=== PATIENT | male | born 1980 | race Caucasian/White ===

== ENCOUNTER 2017-07-07 20:45 | Emergency (ER) | payer SELFPAY ==
[~2017-07-07] VITALS: Ht 188 cm; Wt 83.9 kg
[2017-07-07] MEDS ORDERED: NS IV 1000 ML 1,000 ML IV SCH (21:00)
[2017-07-07] MEDS ORDERED: LORazepam INJ 2 MG/ML (ATIVAN) VIAL IVP ONE ×3 (21:00→23:00)
--- NOTE | 2017-07-07 21:05 | ED Psychosocial ---
General Stated Complaint: ANXIETY Source: patient Exam Limitations: no limitations History of Present Illness Date Seen by Provider: Jul 07, 2017 Time Seen by Provider: 21:04 Initial Comments To ER per EMS from home with reports of anxiety and not feeling well. He is from [place] and has been here in [place] for about 3 weeks. Normally he drinks a couple of fifths of vodka daily but today has only had a pint. He feels very anxious Timing/Duration: constant Severity: moderate Associated Symptoms: anxiety Allergies and Home Medications Allergies Coded Allergies: No Known Drug Allergies (Unverified , 07/07/17) Constitutional: see HPI EENTM: see HPI Respiratory: no symptoms reported Cardiovascular: no symptoms reported Genitourinary: no symptoms reported Musculoskeletal: no symptoms reported Skin: no symptoms reported Psychiatric/Neurological: See HPI, Anxiety Physical Exam Vital Signs Vital Signs - First Documented 07/07/17 20:45 Temp 98.0 Pulse 113 Resp 20 B/P (MAP) 155/84 (107) Pulse Ox 99 O2 Delivery Nasal Cannula Capillary Refill : General Appearance: WD/WN, no apparent distress, other (tachycardic at 110) HEENT: PERRL/EOMI, normal ENT inspection Respiratory: normal breath sounds, no respiratory distress, no accessory muscle use Cardiovascular: regular rate, rhythm, no murmur Gastrointestinal: normal bowel sounds, non tender, soft Neurologic/Psychiatric: alert, normal mood/affect, oriented x 3, other (tearful ) Appearance/Memory: appropriate appearance, appropriate insight, neat Behavior/Eye Contact: cooperative, good eye contact Thoughts/Hallucinations: flight of ideas Skin: normal color, warm/dry Progress/Results/Core Measures Results/Orders Lab Results Laboratory Tests Test 07/07/17 20:54 07/07/17 22:07 Range/Units White Blood Count 4.9 4.3-11.0 10^3/uL Red Blood Count 4.61 4.35-5.85 10^6/uL Hemoglobin 14.7 13.3-17.7 G/DL Hematocrit 42 40-54 % Mean Corpuscular Volume 91 80-99 FL Mean Corpuscular Hemoglobin 32 25-34 PG Mean Corpuscular Hemoglobin Concent 35 32-36 G/DL Red Cell Distribution Width 12.7 10.0-14.5 % Platelet Count 231 130-400 10^3/uL Mean Platelet Volume 9.3 7.4-10.4 FL Neutrophils (%) (Auto) 60 42-75 % Lymphocytes (%) (Auto) 25 12-44 % Monocytes (%) (Auto) 13 H 0-12 % Eosinophils (%) (Auto) 0 0-10 % Basophils (%) (Auto) 2 0-10 % Neutrophils # (Auto) 2.9 1.8-7.8 X 10^3 Lymphocytes # (Auto) 1.2 1.0-4.0 X 10^3 Monocytes # (Auto) 0.6 0.0-1.0 X 10^3 Eosinophils # (Auto) 0.0 0.0-0.3 10^3/uL Basophils # (Auto) 0.1 0.0-0.1 10^3/uL Sodium Level 138 135-145 MMOL/L Potassium Level 4.3 3.6-5.0 MMOL/L Chloride Level 103 98-107 MMOL/L Carbon Dioxide Level 17 L 21-32 MMOL/L Anion Gap 18 H 5-14 MMOL/L Blood Urea Nitrogen 12 7-18 MG/DL Creatinine 0.84 0.60-1.30 MG/DL Estimat Glomerular Filtration Rate > 60 BUN/Creatinine Ratio 14 Glucose Level 105 70-105 MG/DL Calcium Level 9.3 8.5-10.1 MG/DL Total Bilirubin 0.7 0.1-1.0 MG/DL Aspartate Amino Transf (AST/SGOT) 89 H 5-34 U/L Alanine Aminotransferase (ALT/SGPT) 47 0-55 U/L Alkaline Phosphatase 86 40-136 U/L Total Protein 8.4 H 6.4-8.2 GM/DL Albumin 4.4 3.2-4.5 GM/DL Lipase 54 8-78 U/L Salicylates Level < 5.0 L 5.0-20.0 MG/DL Acetaminophen Level < 10 L 10-30 UG/ML Serum Alcohol 80 H <10 MG/DL Urine Color YELLOW Urine Clarity CLEAR Urine pH 6 5-9 Urine Specific [place] 1.025 H 1.016-1.022 Urine Protein 3+ H NEGATIVE Urine Glucose (UA) NEGATIVE NEGATIVE Urine Ketones 2+ H NEGATIVE Urine Nitrite NEGATIVE NEGATIVE Urine Bilirubin NEGATIVE NEGATIVE Urine Urobilinogen 1 NORMAL MG/DL Urine Leukocyte Esterase 1+ H NEGATIVE Urine RBC (Auto) 1+ H NEGATIVE Urine RBC RARE /HPF Urine WBC 2-5 /HPF Urine Crystals NONE /LPF Urine Bacteria NEGATIVE /HPF Urine Casts NONE /LPF Urine Mucus LARGE H /LPF Urine Culture Indicated NO Urine Opiates Screen NEGATIVE NEGATIVE Urine Oxycodone Screen NEGATIVE NEGATIVE Urine Methadone Screen NEGATIVE NEGATIVE Urine Propoxyphene Screen NEGATIVE NEGATIVE Urine Barbiturates Screen NEGATIVE NEGATIVE Ur Tricyclic Antidepressants Screen NEGATIVE NEGATIVE Urine Phencyclidine Screen NEGATIVE NEGATIVE Urine Amphetamines Screen POSITIVE H NEGATIVE Urine Methamphetamines Screen POSITIVE H NEGATIVE Urine Benzodiazepines Screen NEGATIVE NEGATIVE Urine Cocaine Screen NEGATIVE NEGATIVE Urine Cannabinoids Screen NEGATIVE NEGATIVE My Orders Orders - ZACH STOLL APRN Cbc With Automated Diff (07/07/17 20:51) Comprehensive Metabolic Panel (07/07/17 20:51) Lipase (07/07/17 20:51) Ua Culture If Indicated (07/07/17 20:51) Drug Screen Stat (Urine) (07/07/17 20:51) Ekg Tracing (07/07/17 20:51) Salicylate (07/07/17 20:51) Acetaminophen (07/07/17 20:51) Alcohol (07/07/17 20:51) Chest 1 View, Ap/Pa Only (07/07/17 20:51) Lorazepam Injection (Ativan Injection) (07/07/17 21:00) Ns Iv 1000 Ml (Sodium Chloride 0.9%) (07/07/17 21:00) Lorazepam Injection (Ativan Injection) (07/07/17 22:15) Rx-Diazepam Tablet (Rx-Valium Tablet) (07/07/17 22:46) Lorazepam Injection (Ativan Injection) (07/07/17 23:00) Medications Given in ED Current Medications Medications Dose Ordered Sig/Catalino Route Start Time Stop Time Status Last Admin Dose Admin Lorazepam 2 mg ONCE ONCE IVP 07/07/17 21:00 07/07/17 21:01 DC 07/07/17 21:00 2 MG Lorazepam 2 mg ONCE ONCE IVP 07/07/17 22:15 07/07/17 22:16 DC 07/07/17 22:25 2 MG Vital Signs/I&O Vital Sign - Last 12Hours 07/07/17 20:45 Temp 98.0 Pulse 113 Resp 20 B/P (MAP) 155/84 (107) Pulse Ox 99 O2 Delivery Nasal Cannula Departure Communication (Admissions) Progress Notes 2247-after 4 mg of IV Ativan he is feeling better though still anxious. Heart rate 115 sinus, blood pressure 132/79. I offered him admission versus discharge to home to continue drinking tomorrow when he can purchase more alcohol. He states he really just wanted to be checked out and he would like to do detox in the outpatient setting. He does not want to be admitted because he is moving this weekend and has several plans. We will better control his anxiety and symptoms in the emergency room, discharge with a pack of Valium to get him through the night until he can buy alcohol tomorrow. He states he has no alcohol in his home tonight which is why he is here. His girlfriend is at the bedside and agrees to care for him overnight and return to ER for any worsening symptoms. She is agreeable with this plan as well. This is not delirium tremens , he is alert and oriented to person place time and situation, just anxious. Vitals are stable. Impression Impression: Primary Impression: Anxiety Additional Impressions: Alcohol withdrawal Methamphetamine abuse Disposition: 01 HOME, SELF-CARE Condition: Improved Departure-Patient Inst. Decision time for Depature: 22:48 Referrals: NO,LOCAL PHYSICIAN (PCP/Family) Primary Care Physician Patient Instructions: ALCOHOL AND SUBSTANCE ABUSE Add. Discharge Instructions: 1. Return to ER for any concerns 2. Follow-up with [facility] as soon as possible. Call tomorrow to make an appointment to be seen. The phone number is [phone]. ZACH STOLL APRN Jul 07, 2017 21:05
[2017-07-07 21:07] LABS: BASOPHILS # (AUTO) 0.1 10^3/uL (0.0-0.1); BASOPHILS % (AUTO) 2 % (0-10); EOSINOPHILS % (AUTO) 0 % (0-10); HEMATOCRIT 42 % (40-54); HEMOGLOBIN 14.7 G/DL (13.3-17.7); LYMPHOCYTES # (AUTO) 1.2 X 10^3 (1.0-4.0); LYMPHOCYTES % (AUTO) 25 % (12-44); MEAN CORPUSCULAR HEMOGLOBIN 32 PG (25-34); MEAN CORPUSCULAR HGB CONC 35 G/DL (32-36); MEAN CORPUSCULAR VOLUME 91 FL (80-99); MEAN PLATELET VOLUME 9.3 FL (7.4-10.4); MONOCYTES # (AUTO) 0.6 X 10^3 (0.0-1.0); MONOCYTES % (AUTO) 13 % (0-12); NEUTROPHILS # (AUTO) 2.9 X 10^3 (1.8-7.8); NEUTROPHILS % (AUTO) 60 % (42-75); PLATELET COUNT 231 10^3/uL (130-400); RED BLOOD COUNT 4.61 10^6/uL (4.35-5.85); RED CELL DISTRIBUTION WIDTH 12.7 % (10.0-14.5); WHITE BLOOD COUNT 4.9 10^3/uL (4.3-11.0)
[2017-07-07 21:26] LABS: ALANINE AMINOTRANSFERASE 47 U/L (0-55); ALBUMIN 4.4 GM/DL (3.2-4.5); ALKALINE PHOSPHATASE 86 U/L (40-136); BILIRUBIN,TOTAL 0.7 MG/DL (0.1-1.0); BUN/CREATININE RATIO 14; CALCIUM 9.3 MG/DL (8.5-10.1); CARBON DIOXIDE 17 MMOL/L (21-32); CHLORIDE 103 MMOL/L (98-107); CREATININE SERUM 0.84 MG/DL (0.60-1.30); GFR ESTIMATED > 60; GLUCOSE 105 MG/DL (70-105); LIPASE 54 U/L (8-78); POTASSIUM 4.3 MMOL/L (3.6-5.0); SALICYLATE < 5.0 MG/DL (5.0-20.0); SODIUM 138 MMOL/L (135-145); TOTAL PROTEIN 8.4 GM/DL (6.4-8.2)
[2017-07-07 21:27] LABS: ACETAMINOPHEN < 10 UG/ML (10-30)
[2017-07-07 22:13] LABS: BILIRUBIN,URINE NEGATIVE (NEGATIVE); CLARITY,URINE CLEAR; COLOR,URINE YELLOW; GLUCOSE, URINE (UA) NEGATIVE (NEGATIVE); KETONES,URINE 2+ (NEGATIVE); LEUKOCYTE ESTERASE ,URINE 1+ (NEGATIVE); NITRITE,URINE NEGATIVE (NEGATIVE); PH,URINE 6 (5-9); PROTEIN,URINE 3+ (NEGATIVE); UROBILINOGEN,URINE 1 MG/DL (NORMAL)
[2017-07-07 22:20] LABS: BACTERIA,URINE NEGATIVE /HPF; RBC,URINE RARE /HPF
[2017-07-07 22:25] LABS: AMPHETAMINE SCREEN, URINE POSITIVE (NEGATIVE); BARBITURATE SCREEN URINE NEGATIVE (NEGATIVE); BENZODIAZEPINES SCREEN URINE NEGATIVE (NEGATIVE); CANNABINOID SCREEN, URINE NEGATIVE (NEGATIVE); COCAINE SCREEN URINE NEGATIVE (NEGATIVE); METHADONE STAT NEGATIVE (NEGATIVE); METHAMPHETAMINE SCREEN URINE S POSITIVE (NEGATIVE); OPIATE SCREEN URINE NEGATIVE (NEGATIVE); OXYCODONE STAT NEGATIVE (NEGATIVE); PROPOXYPHENE STAT NEGATIVE (NEGATIVE); TRICYCLIC ANTIDEPRESSANTS SCRE NEGATIVE (NEGATIVE)
[2017-07-07] MEDS ORDERED: RX-DIAZEPAM 5 MG (VALIUM) TAB PPK#4 PO STA (22:46)
[2017-07-07 23:24] VITALS: BP 116/64
--- NOTE | 2017-07-08 08:08 | Diagnostic Imaging Report ---
INDICATION: Anxiety and dyspnea. Portable upright AP view chest is obtained. COMPARISON: No previous study is available for comparison at this time. FINDINGS: Heart size and pulmonary vasculature are within normal limits, and the lungs are clear, bilaterally. IMPRESSION: Unremarkable chest. Dictated by: Dictated on workstation # [id number]
== END 2017-07-07 23:24 | disposition home or self-care (01) ==
LOC: ER 20:49
DX: F41.9 Anxiety disorder, unspecified (principal); F15.10 Other stimulant abuse, uncomplicated; F10.239 Alcohol dependence with withdrawal, unspecified
CPT/HCPCS: 36415; 71045; 80053; 80306; 80320; 80329; 81000; 83690; 85025; 93041; 96361; 96374; 96376